=== PATIENT | female | born 1970 | race African-American/Black ===

== ENCOUNTER 2020-09-10 09:11 | Outpatient (CLI) | payer OTHER, SELFPAY ==
--- NOTE | ~2020-09-10 | XR_ITS ---
EXAMINATION: XR wrist RT min 3V INDICATION: Right wrist pain TECHNIQUE: Four views of the right wrist are obtained. COMPARISON: None available FINDINGS: There is no fracture, dislocation, or subluxation. The bones, soft tissues, and joint space s are normal. IMPRESSION: 1. No acute osseous abnormality. Reviewed, dictated and finalized at location A.
--- NOTE | ~2020-09-10 | XR_ITS ---
EXAMINATION: XR shoulder LT min 2V INDICATION: Left shoulder pain TECHNIQUE: Four views of the left shoulder are submitted. COMPARISON: None FINDINGS: Normal alignment. No fracture. There is moderate osteoarthritis of the acromioclavicular lj int. The glenohumeral joint is unremarkable. Soft tissues are unremarkable. IMPRESSION: 1. Osteoarthritis. Reviewed, dictated and finalized at location A. IMPRESSION: 1. Osteoarthritis.
== END 2020-09-10 09:12 | disposition home or self-care (01) ==
LOC: ANHIMG 09:25
PROVIDERS: PCP Physician Assistant; Visit Provider Physician Assistant
DX: M25.531 Pain in right wrist (principal); M19.012 Primary osteoarthritis, left shoulder
CPT/HCPCS: 73030; 73110

== ENCOUNTER 2020-10-15 09:33 | Outpatient (CLI) | payer OTHER, SELFPAY ==
--- NOTE | ~2020-10-15 | XR_ITS ---
XR knee LT 3V DATE: 10/15/2020 10:02 INDICATION: Bilateral knee pain TECHNIQUE: [place] and AP and lateral views COMPARISON: None FINDINGS: No fracture or dislocation or joint effusion. No periosteal reaction or bone destruction. J oint spaces are well preserved. No radiopaque interarticular loose body or chondrocalcinosis. IMPRESSION: No significant abnormality Reviewed, dictated and finalized at location A. IMPRESSION: No significant abnormality
--- NOTE | ~2020-10-15 | XR_ITS ---
XR knee RT 3V DATE: 10/15/2020 10:02 INDICATION: Bilateral knee pain TECHNIQUE: AP, lateral, sunrise views COMPARISON: None FINDINGS: There is prominent enthesopathy of the patella and anterior tibial tuberosity at the patell ar tendon insertion sites. No fracture or dislocation or joint effusion. No periosteal reaction or bone destruction. No radiopaq ue intra-articular loose body or chondrocalcinosis. Joint spaces are well preserved. IMPRESSION: No fracture or dislocation or joint effusion Reviewed, dictated and finalized at location A.
== END 2020-10-15 09:34 | disposition home or self-care (01) ==
PROVIDERS: PCP Physician Assistant; Visit Provider Physician Assistant
DX: M25.561 Pain in right knee (principal); M25.562 Pain in left knee
CPT/HCPCS: 73562

== ENCOUNTER 2020-11-28 12:30 | Outpatient (RCR) | payer OTHER, SELFPAY ==
[2020-11-01 12:35] VITALS: BP_SYST 120
--- NOTE | 2020-11-01 13:36 | PTOPEVAL ---
PHYSICAL THERAPY EVALUATION AND PLAN OF CARE 11-01-20 Thank you for referring Danielle Rey to [facility], for the diagnosis of L shoulder pain. Her pain is radicular into her L fingers and neck, the treatment plan includes treatment to the cervical area. She is scheduled to be seen for therapy? 2 x/week for 4 weeks. Please review, sign, date and return this plan of care NOEMI. I agree with and certify that the following plan of care is medically necessary. Referring Physician Date Attending Provider: TONNY Maier *PT Outpatient Evaluation Document 11/01/20 12:35 KOREY (Rec: 11/01/20 13:36 KOREY [id number]) Past Medical History Source of Past Medical History Patient Neurological History Hx Neurological Disorders No Significant History Cardiovascular History Hx Hypertension Yes: meds Respiratory History Hx Respiratory Disorders No Significant History Gastrointestinal History Hx Gastrointestinal Disorders No Significant History Genitourinary History Hx Genitourinary Disorders No Significant History Musculoskeletal History Hx Back Pain Yes: pinched nerve in shoulder blade on L side-work injury Hx Other Musculoskeletal Disorders Yes: pain L heel & knee, R wrist- due to recent fall, Endocrine History Hx Diabetes Yes: new diagnosis- just starting meds for HEENT History Hx HEENT Disorders No Significant History Integumentary History Hx Skin Disorders No Significant History Other History Hx Other Medical Conditions Yes: obesity Evaluation Information Problem Diagnosis L shoulder pain Onset October 2019 Subjective Information gradual increase in shoulder Query Text:As Reported By Patient/ pain; no injury or trauma to Family shoulder;had cortisone shot, better for few days, then pain returned Diagnostic Tests X-Rays For This Problem Yes: mod OA of a-c joint MRI For This Problem No Other Tests For This Problem No Previous Treatments Previous Treatments For This Problem no previous PT for shoulder Prior Level of Function Activity Level (Last 3 Months) Occupation drive rail road/trains; Hand Dominance Right Activity of Daily Living Ability Independent Indoor/Home Mobility Independent Community Mobility Independent Stairs Ability Independent Functional Cognition (Planning, Shopping Independent , Taking Medications) Cooking Yes Cleaning Yes Laundry Yes Shopping Yes Driving Yes Comments Addit
--- NOTE | 2020-11-28 13:09 | PTOPEVAL ---
PHYSICAL THERAPY DISCHARGE 11-28-20 Refer to the clinical summary below for her status with today's reeval, compared to the initial evaluation. The goals were partially achieved; she will be discharged at this time, and is to continue with her home exercises. Thank you for referring Danielle Rey to [facility] Please review, sign, date and return this Discharge NOEMI. I agree with and certify that the following plan of care is medically necessary. Referring Physician Date Attending Provider: TONNY Maier Document 11/28/20 12:30 KOREY (Rec: 11/28/20 13:05 KOREY [id number]) Assessment Status Discharge Subjective Information Danielle reports: shoulder is Query Text:As Reported By Patient/ better, still hurting and have Family some catching but is tolerable; am still cautious with lifting and using L arm, afraid pain will be worse or drop something; doing all exercises at home OK; agree to discharge from PT and do exercises on her own; Pain Assessment Timing of Pain Assessment Timing of Pain Assessment Assessment Pain Scale Pain Scale Used Numeric (1 - 10) Self Report Pain Assessment Left Shoulder(s) Reported Pain Level 1 Pain Frequency Chronic,Intermittent Other Pain Description catch in anterior and lateral GH joint; large clamp over shoulder: ant>lat Lowest Pain Intensity 1 Greatest Pain Intensity 5 Pain Aggravating Factors Lifting Other Pain Aggravating Factors pulling; quick motion of arm; Pain Score Pain Score 1: Self Report Additional Pain Score Comments self assessment with Quick DASH is 34% limitation; with sleeping, awaken from pain 3 times/night; cannot lie on L shoulder; no tingling in hand; pain radicular to above elbow; Interventions Used Interventions Used By Clinicians Education,Exercise Pain Relief Interventions Used By Exercise,Heat,Inactivity/Rest, Patient Medication Other Alleviating Interventions rub muscle, do shoulder rolls backwards; ibuprofen about once/day Upper Extremity Range of Motion General Upper Extremity Range of Motion Gross Upper Extremity Range of Motion cervical rotation L 60' with Comments increase pain in lateral L neck-catch or pinch; side bend to R and L- no pain
== END 2020-11-29 10:31 | disposition home or self-care (01) ==
LOC: ANHPT 12:30
PROVIDERS: PCP Physician Assistant; Visit Provider Physician Assistant
DX: M25.512 Pain in left shoulder (principal)
CPT/HCPCS: 97014; 97110; 97140; 97161; G0283

== ENCOUNTER 2020-12-22 16:19 | Outpatient (CLI) | payer OTHER, SELFPAY ==
--- NOTE | ~2020-12-22 | MM_ITS ---
EXAMINATION: MM screening mesha BI w sherman HISTORY: Screening TECHNIQUE: Craniocaudal and mediolateral oblique 3-D tomosynthesis images were obtained and synthetic 2-D images were generated. CAD analysis was submitted and interpreted. COMPARISON: No prior mammogram is available for comparison at this institution. BREAST PARENCHYMAL COMPOSITION: There are scattered areas of fibroglandular density. FINDINGS: There is no evidence of suspicious mass, calcification, or architectural distortion to sugg est malignancy in either breast. There has been no suspicious interval change. IMPRESSION: 1. No mammographic evidence of malignancy. 2. Recommend routine screening mammography in one year. BI-RADS Category 1: Negative Reviewed, dictated and finalized at location A.
== END 2020-12-22 16:20 | disposition home or self-care (01) ==
LOC: ANHIMG 16:20
PROVIDERS: PCP Physician Assistant; Visit Provider Physician Assistant
DX: Z12.31 Encounter for screening mammogram for malignant neoplasm of breast (principal)
CPT/HCPCS: 77063; 77067

== ENCOUNTER 2021-05-30 20:17 | Emergency (ER) | payer OTHER, SELFPAY ==
[2021-05-30 20:31] VITALS: BP 138/82; PULSE 66; RESP 16; TEMP 36.7; O2SAT 100
[2021-05-30 21:22] VITALS: BP 151/80; PULSE 72; RESP 14; TEMP 37.1; O2SAT 98
--- NOTE | 2021-05-30 22:38 | ED.GENADULT ---
HPI - General Adult General Chief complaint: Back Pain/Injury Stated complaint: lower left back pain and pelvic pain Time Seen by Provider: 05/30/21 21:57 History of Present Illness HPI narrative: 50-year-old female presenting to the emergency department for evaluation of left lower back and left hip pain that radiates into her upper thigh. Patient denies any specific incident of fall or injury. Patient denies any associated numbness or weakness. Patient did take ibuprofen for pain control with no significant improvement. Related Data Allergies Allergy/AdvReac Type Severity Reaction Status Date / Time No Known Allergies Allergy Verified 05/30/21 21:23 Review of Systems Review of Systems: CONSTITUTIONAL: Denies fever, chills, or sweats. EYES: Denies visual changes, redness, or discharge. ENT: Denies rhinorrhea, congestion, sore throat, or otalgia. CARDIOVASCULAR: Denies chest pain, palpitations, or edema. RESPIRATORY: Denies cough or dyspnea. GASTROINTESTINAL: Denies abdominal pain, nausea, vomiting, or diarrhea. GENITOURINARY: Denies dysuria or hematuria. SKIN: Denies rash or itching. MUSCULOSKELETAL: Right lower back and hip pain NEUROLOGIC: Denies headache, numbness, or weakness. PSYCHIATRIC: Denies anxiety or depression. Exam Narrative: APPEARANCE: Well appearing, no pain in distress, well-nourished. Head normocephalic atraumatic. RESPIRATORY: Airway patent, respirations nonlabored. Clear to auscultation bilaterally, no rales, rhonchi, wheezing. CARDIOVASCULAR: Regular rate and rhythm without murmurs rubs or gallops. ABDOMINAL: Soft, nontender, nondistended, no hepatosplenomegally MUSCULOSKELETAl: Moves all extremities. Strenght/ROM intact, No edema, No calf tenderness. NEURO: Alert. Cranial nerves II through XII intact. Good gait. Good coordination, right lower back tenderness to palpation into right buttock. Neurologically intact SKIN: Warm, dry. Normal Color PSYCHIATRIC: Normal affect/mood. Course Course Emergency Course: Patient was updated on the results of the exam and plan for treatment at home. All questions and concerns were addressed. Patient was encouraged to have close follow-up with her primary care physician. Patient was in no distress at time of discharge from the emerge department Vital Signs Vital signs: Vital Signs Temperature 98.0 F 12/14/21 20:31 Pulse Rate 66 05/30/21 20:31 Respiratory Rate 16 05/30/21 20:31 Blood Pressure 138/82 05/30/21 20:31 Pulse Oximetry 100 05/30/21 20:31 Temperature 98.7 F 05/30/21 21:22 Pulse Rate 78 05/30/21 22:50 Respiratory Rate 19 05/30/21 22:50 Blood Pressure 145/74 H 05/30/21 22:50 Pulse Oximetry 97 05/30/21 22:50 Medical Decision Making MDM Narrative Medical decision making narrative: Patient's exam is consistent with sciatica. Vital Signs Vital Signs: Vital Signs Temperature 98.0 F 05/30/21 20:31 Pulse Rate 66 05/30/21 20:31 Respiratory Rate 16 05/30/21 20:31 Blood Pressure 138/82 05/30/21 20:31 Pulse Oximetry 100 05/30/21 20:31 Temperature 98.7 F 05/30/21 21:22 Pulse Rate 78 05/30/21 22:50 Respiratory Rate 19 05/30/21 22:50 Blood Pressure 145/74 H 05/30/21 22:50 Pulse Oximetry 97 05/30/21 22:50 Discharge Plan Discharge Clinical Impression: Sciatica Patient Disposition: Home, Self-Care Condition: Stable Instructions: Antibiotic Form Additional Instructions: Tylenol and ibuprofen for pain control. Medrol Dosepak as directed to help with inflammation. Flexeril as directed for muscle spasm. Continue to have close follow-up with your primary care physician. If you have any worsening symptoms or if you have any questions or concerns then please call or return to the emergency department. Prescriptions: New cyclobenzaprine 5 mg tablet 5 mg PO TID PRN (Reason: muscle spasm) Qty: 14 RF: 0 methylprednisolone [Medrol (Bert)] 4 mg tablets,dose pack See Rx
[2021-05-30 22:50] VITALS: BP 145/74; PULSE 78; RESP 19; O2SAT 97
== END 2021-05-30 22:50 | disposition home or self-care (01) ==
PROVIDERS: Emergency Provider Emergency Medicine; PCP Physician Assistant
DX: M54.42 Lumbago with sciatica, left side (principal)
CPT/HCPCS: 99283

== ENCOUNTER 2022-09-06 00:27 | Day surgery (SDC) | payer OTHER, SELFPAY ==
[2022-08-27 14:39] VITALS: BMI 33.0
[2022-09-06 08:00] VITALS: BP 139/75; PULSE 84; RESP 16; TEMP 35.9; O2SAT 100; BMI 34.1
[2022-09-06] MEDS: LACTATED RINGERS 1,000 ML 150 ML IV CONT (08:20)
--- NOTE | 2022-09-06 08:21 | P.PNAN_ITS ---
Anes - Initial Pre Proc Eval Procedure: Operation Date: 09/06/22 09:00 Proposed Procedures p Screening Colonoscopy - Papito Arthur MD Date/Time: 09/06/22 08:21 Surgeon: Papito Arthur MD Pre Op Diagnosis: neoplasm screening Patient Data Age: 51 Gender: F Height: 1.57 m Weight: 84.6 kg Last Vital Signs Temp 35.9 C L 09/06/22 08:00 Pulse 84 09/06/22 08:00 Resp 16 09/06/22 08:00 BP 139/75 09/06/22 08:00 Pulse Ox 100 09/06/22 08:00 O2 Del Method Room Air 09/06/22 08:00 Allergies Allergy/AdvReac Type Severity Reaction Status Date / Time No Known Allergies Allergy Verified 09/06/22 08:11 Home Medications Medication Instructions Recorded Confirmed Type amlodipine 10 mg tablet 10 mg PO DAILY 08/24/22 09/06/22 History lisinopril 10 1 tablet PO DAILY 08/24/22 09/06/22 History mg-hydrochlorothiazide 12.5 mg tablet Patient hx anesthesia problems: none Family hx anesthesia problems: none Results Review: All pre-operative results and documents have been reviewed as part of the pre- operative evaluation. [facility] Past Medical History Medical History (Updated 09/06/22 @ 08:21 by Chas Akhtar DO) Hypertension Social History Social History Smoking packs per day: 0.5 Smoking cigarettes per day: 10.0 Smoking status: Current every day smoker Tobacco type: cigarettes Alcohol intake: current Alcohol use details: 3 SHOTS VODKA IN 2 DAYS Substance use: never Substance use type: does not use Living arrangements: with family Spiritual care concerns: No Anes - Eval Final PreProcedure Day of Procedure 09/06/22 08:21 Patient weight: obese Heart: regular rate and rhythm Lungs: clear to auscultation Airway: Mallampati scale class II Neurological: alert and oriented Last oral intake: >/= 8 hours ASA classification: III Emergent: no Anesthetic plan: proceed Anesthesia type and monitoring: general GIVS and standard monitoring Results Review: All pre-operative results and documents have been reviewed as part of the pre- operative evaluation. Informed Consent: The patient's anesthetic plan and its attendant risks and benefits were discussed with the patient/family/POA. Questions were solicited and answers provided to the satisfaction of the patient/family/POA.
--- NOTE | 2022-09-06 09:18 | PM.HPGS ---
History of Present Illness History of Present Illness Consent: Risks, benefits, and alternatives have been discussed and questions answered. Patient agrees to proceed with procedure. Chief complaint: neoplasm screening Narrative: Danielle Ro is a 51 year old female Presents for screening colonoscopy. Patient's current weight appetite and bowel movements are normal. Patient denies abdominal pain. She has had no bleeding. Family history noncontributory. Review of Systems Review of Systems: Review of systems noncontributory. [facility] Past Medical History Medical History (Updated 09/06/22 @ 09:19 by Papito Arthur MD) Hypertension Social History Social History Smoking packs per day: 0.5 Smoking cigarettes per day: 10.0 Smoking status: Current every day smoker Tobacco type: cigarettes Alcohol intake: current Alcohol use details: 3 SHOTS VODKA IN 2 DAYS Substance use: never Substance use type: does not use Living arrangements: with family Spiritual care concerns: No Meds Home Medications and Allergies Home Medications Medication Instructions Recorded Confirmed Type amlodipine 10 mg tablet 10 mg PO DAILY 08/24/22 09/06/22 History lisinopril 10 1 tablet PO DAILY 08/24/22 09/06/22 History mg-hydrochlorothiazide 12.5 mg tablet Allergies Allergy/AdvReac Type Severity Reaction Status Date / Time No Known Allergies Allergy Verified 09/06/22 08:11 Vital Signs Vital Signs - 24 hr 09/06/22 08:00 Temperature 96.6 F L Pulse Rate 84 Respiratory Rate 16 Blood Pressure 139/75 Pulse Oximetry 100 Oxygen Delivery Room Air Exam Narrative: Physical exam reveals patient to be alert. Vital signs stable. HEENT exam is unremarkable. Patient is anicteric. Lungs are clear to auscultation and percussion. Heart is without murmur or extra sounds. Abdomen bowel sounds are present soft nontender with no organomegaly. Digital external rectal exam is normal. Assessment and Plan Assessment and plan (1) Encounter for screening colonoscopy: Code(s): Z12.11 - Encounter for screening for malignant neoplasm of colon Status: Acute Assessment and Plan: Patient presents today for screening colonoscopy. She appears to be at average risk for colon polyps. Further recommendations may be given after endoscopy.
[2022-09-06 09:48] VITALS: BP 150/62; PULSE 81; RESP 18; O2SAT 96
[2022-09-06 09:58] VITALS: BP 117/67; PULSE 70; RESP 22; O2SAT 96
[2022-09-06 10:08] VITALS: BP 137/82; PULSE 66; RESP 22; O2SAT 96
== END 2022-09-06 10:32 | disposition home or self-care (01) ==
PROVIDERS: PCP Physician Assistant; Visit Provider Internal Medicine Gastroenterology
PROC: 0DJD8ZZ Inspection of Lower Intestinal Tract, Via Natural or Artificial Opening Endoscopic (ICD-10-PCS; CPT 45378; principal; 2022-09-06 09:00)
DX: Z12.11 Encounter for screening for malignant neoplasm of colon (principal); I10 Essential (primary) hypertension; F17.210 Nicotine dependence, cigarettes, uncomplicated; E66.9 Obesity, unspecified; Z68.34 Body mass index [BMI] 34.0-34.9, adult
CPT/HCPCS: 45378; J2704; J7120

== ENCOUNTER 2023-12-20 08:16 | Outpatient (CLI) | payer OTHER, SELFPAY ==
--- NOTE | 2023-12-20 08:44 | ECG_ITS ---
Test Date: 2023-12-20 08:54:07 Measurements Intervals Wister Rate: 75 P: 58 ME: 170 QRS: 5 QRSD: 92 T: -7 QT: 384 QTc: 431 Interpretive Statements SINUS RHYTHM VOLTAGE CRITERIA FOR LLEFT VENTRICULAR HYPERTROPHY CONSIDER INFERIOR INFARCT, AGE INDETERMINATE ABNORMAL ECG No previous ECG available for comparison Electronically Signed On 12-20-2023 09:30:37 CDT by Jermaine Jimenez D.O.
== END 2023-12-20 08:17 | disposition home or self-care (01) ==
LOC: ANHCARD 08:20
PROVIDERS: PCP Physician Assistant; Visit Provider Physician Assistant
DX: Z01.818 Encounter for other preprocedural examination (principal); R94.31 Abnormal electrocardiogram [ECG] [EKG]
CPT/HCPCS: 93005

== ENCOUNTER 2024-05-08 09:38 | Outpatient (CLI) | payer OTHER, SELFPAY ==
--- NOTE | 2024-05-08 | EST_ITS ---
Patient Info Name: Danielle Ro Age: 53 years : 1970 Gender: Female Ht: 62 in Wt: 185 lbs BSA: 1.95 m2 HR: 73 bpm BP: 138 / 83 mmHg Exam Date: 05/08/2024 10:57 AM Exam Location: Echo Lab Patient Status: Outpatient Admit Date: 05/08/2024 Staff Ordering Physician: TessyLeonie Attending Provider: Tessy, Leonie LANCASTER Exercise Technologist: Aleah Ramsey [facility] Exercise Physician: Jermaine Jimeenz DO Exam Type: CA stress test treadmill Study Info A treadmill exercise stress test was performed. Summary 1. 1. Negative Matteo exercise stress test for ischemic ST changes by ECG criteria. 2. 2. Good functional capacity, achieving 9.8 METs of workload. 3. 3. Hypertensive response to exercise. 4. 4. Appropriate HR response to exercise. 5. 5. Appropriate HR recovery at 1 minute post exercise. 6. 6. No imaging with stress testing. 7. 7. Patient informed of the above results. Protocol: Matteo Stress ECG Details Stage: REST Duration (min): 1 min : 15 sec Speed (mph): 0.0 Grade (%): 0 HR (bpm): 72 SBP (mmHg): 138 DBP (mmHg): 83 METS: --- Stage: REST Duration (min): 4 min : 16 sec Speed (mph): 0.0 Grade (%): 0 HR (bpm): 85 SBP (mmHg): 138 DBP (mmHg): 83 METS: --- Stage: STAGE 1 Duration (min): 1 min : 0 sec Speed (mph): 1.7 Grade (%): 10 HR (bpm): 102 SBP (mmHg): 138 DBP (mmHg): 83 METS: --- Stage: STAGE 1 Duration (min): 2 min : 0 sec Speed (mph): 1.7 Grade (%): 10 HR (bpm): 110 SBP (mmHg): 138 DBP (mmHg): 83 METS: --- Stage: STAGE 1 Duration (min): 3 min : 0 sec Speed (mph): 1.7 Grade (%): 10 HR (bpm): 112 SBP (mmHg): 184 DBP (mmHg): 84 METS: --- Stage: STAGE 2 Duration (min): 1 min : 0 sec Speed (mph): 2.5 Grade (%): 12 HR (bpm): 122 SBP (mmHg): 184 DBP (mmHg): 84 METS: --- Stage: STAGE 2 Duration (min): 2 min : 0 sec Speed (mph): 2.5 Grade (%): 12 HR (bpm): 129 SBP (mmHg): 212 DBP (mmHg): 88 METS: --- Stage: STAGE 2 Duration (min): 3 min : 0 sec Speed (mph): 2.5 Grade (%): 12 HR (bpm): 130 SBP (mmHg): 212 DBP (mmHg): 88 METS: --- Stage: STAGE 3 Duration (min): 1 min : 0 sec Speed (mph): 3.4 Grade (%): 14 HR (bpm): 145 SBP (mmHg): 218 DBP (mmHg): 95 METS: --- Stage: STAGE 3 Duration (min): 1 min : 30 sec Speed (mph): 3.4 Grade (%): 14 HR (bpm): 149 SBP (mmHg): 218 DBP (mmHg): 95 METS: --- Stage: RECOVERY Duration (min): 0 min : 29 sec Speed (mph): 0.0 Grade (%): 0 HR (bpm): 139 SBP (mmHg): 218 DBP (mmHg): 95 METS: --- Stage: RECOVERY Duration (min): 1 min : 29 sec Speed (mph): 0.0 Grade (%): 0 HR (bpm): 122 SBP (mmHg): 218 DBP (mmHg): 95 METS: --- Stage: RECOVERY Duration (min): 2 min : 29 sec Speed (mph): 0.0 Grade (%): 0 HR (bpm): 110 SBP (mmHg): 218 DBP (mmHg): 95 METS: --- Stage: RECOVERY Duration (min): 3 min : 29 sec Speed (mph): 0.0 Grade (%): 0 HR (bpm): 105 SBP (mmHg): 195 DBP (mmHg): 72 METS: --- Stage: RECOVERY Duration (min): 4 min : 29 sec Speed (mph): 0.0 Grade (%): 0 HR (bpm): 94 SBP (mmHg): 195 DBP (mmHg): 72 METS: --- Stage: RECOVERY Duration (min): 5 min : 29 sec Speed (mph): 0.0 Grade (%): 0 HR (bpm): 99 SBP (mmHg): 163 DBP (mmHg): 78 METS: --- Stage: RECOVERY Duration (min): 5 min : 36 sec Speed (mph): 0.0 Grade (%): 0 HR (bpm): 101 SBP (mmHg): 163 DBP (mmHg): 78 METS: --- Rest HR: 85 bpm Peak HR: 149 bpm Rest Sys BP: 138 mmHg Peak Sys BP: 218 mmHg Max Pred HR: 168 bpm % Max Pred HR: 89 % Target HR: 143 bpm Max RPP: 32,482 bpm*mmHg Ambriz Score: -4 BP Response: Patient exhibited a hypertensive response with stress Termination Reason: Reached target heart rate or workload Cardiac Symptoms: Shortness of breath Max ST Seg Deviation: -2.40 mm Total Time: 7 min : 30 sec Rest Luke BP: 83 mmHg Peak Luke BP: 95 mmHg Angina Score: None Total METS: 9.8 Resting ECG Sinus rhythm. Stress ECG No ST changes. Arrhythmias None. Report Signatures
== END 2024-05-08 09:39 | disposition home or self-care (01) ==
PROVIDERS: PCP Physician Assistant; Visit Provider Physician Assistant
DX: R94.31 Abnormal electrocardiogram [ECG] [EKG] (principal)
CPT/HCPCS: 93017